=== PATIENT | male | born 1990 | race Two or more races ===

== ENCOUNTER 2017-05-03 09:53 | Observation (INO) | payer OTHER ==
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
[2017-05-03 10:22] LABS: BASO % 0.2 % (0-2.0); EOS % 3.5 % (0-4.5); HEMATOCRIT 45.6 % (35.4-49); HEMOGLOBIN 15.2 GM/dL (11.7-16.9); LYMPH % 13.8 % (8-40); MCH 30.2 pg (25.7-33.7); MCHC 33.3 g/dl (32.0-35.9); MEAN CELL VOLUME 90.9 fl (80-96); MEAN PLT VOLUME 8.8 fl (7.5-11.1); NEUT % 78.5 % (42.8-82.8); PLATELET COUNT 251 K/MM3 (134-434); RBC 5.02 M/mm3 (4.00-5.60); RDW 12.3 % (11.9-15.9); WHITE BLOOD COUNT 9.2 K/mm3 (4.0-10.0)
[2017-05-03] MEDS ORDERED: SODIUM CHLORIDE 0.9% 500 ML INFUS.BAG IV ONE (10:23)
[2017-05-03] MEDS ORDERED: FAMOTIDINE IV 20 MG/12 ML VIAL IVPUSH ONE (10:25)
[2017-05-03] MEDS ORDERED: ONDANSETRON 4 MG/2 ML VIAL IVPUSH ONE (10:25)
[2017-05-03] MEDS ORDERED: MAG HYDROX/AL HYDROX/SIMETH -MYLANTA- ORAL SUSPENSION PO ONE (10:26)
[2017-05-03] MEDS ORDERED: FAMOTIDINE 20 MG/50 ML IVPB 20 MG/50 ML MG IVPB ONE (10:32)
[2017-05-03] MEDS ORDERED: ONDANSETRON 4 MG/2 ML VIAL ONE (10:32)
[2017-05-03] MEDS ORDERED: MAG HYDROX/AL HYDROX/SIMETH 30 ML UNIT-DOSE CUP ONE (10:32)
[2017-05-03 10:45] LABS: ALBUMIN 4.2 g/dl (3.4-5.0); ALK PHOS 83 U/L (45-117); ANION GAP 7 (8-16); BILIRUBIN,TOTAL 0.4 mg/dL (0.2-1.0); BLOOD UREA NITROGEN 9 mg/dL (7-18); CALCIUM 9.6 mg/dL (8.5-10.1); CHLORIDE 102 mmol/L (98-107); CO2 28 mmol/L (21-32); GLUCOSE,RANDOM 108 mg/dL (74-106); SGPT/ALT 41 U/L (12-78); SODIUM 137 mmol/L (136-145)
[2017-05-03] MEDS ORDERED: LORazepam 2 MG/ML SDV VIAL ONE (10:56)
--- NOTE | 2017-05-03 11:14 | PDOC ---
Attending Attestation - Resident Resident Name: Funmi Franks - ED Attending Attestation I have performed the following: I have examined & evaluated the patient, The case was reviewed & discussed with the resident, I agree w/resident's findings & plan, Exceptions are as noted - HPI HPI: 05/03/17 11:06 "The patient is a 26-year-old male with a significant past medical history of asthma and substance abuse (opioid and cannabis), who is sent from [facility] today to the emergency department with abdominal pain, nausea, and vomiting for 1 day. Patient was set to be discharged from [facility] today but was found to be dry heaving this morning. Patient reports that his pain started last night but is worsening today. He reports epigastric pain and denies any radiation of pain. He admits to multiple episodes of non-bloody green-yellow vomit. No diarrhea. Denies any recent substance use. Has been at [facility] for 5 days. The patient denies chest pain, shortness of breath, headache and dizziness. The patient denies fever, chills, diarrhea and constipation. The patient denies dysuria, frequency, urgency and hematuria. Allergies: shellfish Social History: Substance abuse (opioid and cannabis) " - Physicial Exam PE: 05/03/17 11:14 "GENERAL: Awake, alert, and fully oriented, in no acute distress HEAD: No signs of trauma EYES: PERRLA, EOMI, sclera anicteric, conjunctiva clear ENT: Auricles normal inspection, hearing grossly normal, nares patent, oropharynx clear without exudates. Moist mucosa NECK: Nontender, no stepoffs, Normal ROM, supple, no lymphadenopathy, JVD, or masses LUNGS: Breath sounds equal, clear to auscultation bilaterally. No wheezes, and no crackles HEART: Regular rate and rhythm, normal S1 and S2, no murmurs, rubs or gallops ABDOMEN: + epigastric tenderness, negative allen's, no RLQ tenderness, normoactive bowel sounds. No guarding, no rebound. No masses EXTREMITIES: Normal range of motion, no edema. No clubbing or cyanosis. No cords, erythema, or tenderness NEUROLOGICAL: Cranial nerves II through XII intact. 5/5 strength and sensation in all extremities, Normal speech, normal gait, normal cerebellar function SKIN: Warm, Dry, normal turgor, no rashes or lesions noted. - Medical Decision Making 05/03/17 11:16 26 M with h/o PSA presenting with epigastric pain. Likely gastritis vs cyclic vomiting syndrome. Possible etoh or opiate withdrawal though less likely as pt reportedly has been clean for 5 days. - Labs, lipase - IVF, gi cocktail
[2017-05-03 11:20] LABS: LIPASE 229 U/L (73-393); POTASSIUM 4.5 mmol/L (3.5-5.1); SGOT/AST 32 U/L (15-37)
[2017-05-03 11:35] LABS: COCAINE, UR NEGATIVE ng/ml (CUTOFF=300); METHADONE, UR NEGATIVE ng/ml (CUTOFF=300); OPIATES, URI NEGATIVE ng/ml (CUTOFF=300); PHENCYCLIDINE,URINE NEGATIVE ng/ml (CUTOFF=25); URINE AMPHETAMINES NEGATIVE ng/ml (CUTOFF=500); URINE BARBITURATES NEGATIVE ng/ml (CUTOFF=200); URINE BENZODIAZEPINES POSITIVE ng/ml (CUTOFF=200)
[2017-05-03] MEDS ORDERED: SODIUM CHLORIDE 1,000 ML IV STA (12:16)
[2017-05-03] MEDS ORDERED: METOCLOPRAMIDE HCL INJECTION 10 MG/2 ML VIAL IVPUSH ONE (12:16)
[2017-05-03] MEDS ORDERED: METOCLOPRAMIDE HCL INJECTION 10 MG/2 ML VIAL ONE (12:23)
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
[2017-05-03] MEDS ORDERED: MAG HYDROX/AL HYDROX/SIMETH 30 ML UNIT-DOSE CUP PO PRN (14:47)
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
[2017-05-03] MEDS ORDERED: ALBUTEROL SO4 18 GM HFA INHALER IH PRN (15:08)
--- NOTE | 2017-05-03 15:28 | DS ---
Physical Exam: SUBJECTIVE: Patient seen and examined OBJECTIVE: Vital Signs Period Temp Pulse Resp BP Sys/Dickerson Pulse Ox Last 24 Hr 98.1 F-98.8 F 104-125 17-22 129-144/77-89 96-100 PHYSICAL EXAM GENERAL: The patient is awake, alert, and fully oriented, in no acute distress. HEAD: Normal with no signs of trauma. EYES: PERRL, extraocular movements intact, sclera anicteric, conjunctiva clear. ENT: Ears normal, nares patent, oropharynx clear without exudates, moist mucous membranes. NECK: Trachea midline, full range of motion, supple. LUNGS: Breath sounds equal, clear to auscultation bilaterally, no wheezes, no crackles, no accessory muscle use. HEART: Regular rate and rhythm, S1, S2 without murmur, rub or gallop. ABDOMEN: Soft, nontender, nondistended, normoactive bowel sounds, no guarding, no rebound, no hepatosplenomegaly, no masses. EXTREMITIES: 2+ pulses, warm, well-perfused, no edema. NEUROLOGICAL: Cranial nerves II through XII grossly intact. Normal speech, gait not observed. PSYCH: Normal mood, normal affect. SKIN: Warm, dry, normal turgor, no rashes or lesions noted. LABS Laboratory Results - last 24 hr 05/03/17 05/03/17 05/03/17 10:14 10:14 10:14 WBC 9.2 RBC 5.02 Hgb 15.2 Hct 45.6 MCV 90.9 MCH 30.2 MCHC 33.3 RDW 12.3 Plt Count 251 MPV 8.8 Neutrophils % 78.5 Lymphocytes % 13.8 Monocytes % 4.0 Eosinophils % 3.5 Basophils % 0.2 Sodium 137 Potassium 4.5 Chloride 102 Carbon Dioxide 28 Anion Gap 7 L BUN 9 D Creatinine 1.0 Creat Clearance w eGFR > 60 Random Glucose 108 H D Lactic Acid 1.2 Calcium 9.6 Total Bilirubin 0.4 AST 32 ALT 41 D Alkaline Phosphatase 83 Total Protein 8.0 Albumin 4.2 Lipase 229 Opiates Screen Methadone Screen Barbiturate Screen Phencyclidine Screen Ur Amphetamines Screen MDMA (Ecstasy) Screen Benzodiazepines Screen Cocaine Screen U Marijuana (THC) Screen 05/03/17 10:29 WBC RBC Hgb Hct MCV MCH MCHC RDW Plt Count MPV Neutrophils % Lymphocytes % Monocytes % Eosinophils % Basophils % Sodium Potassium Chloride Carbon Dioxide Anion Gap BUN Creatinine Creat Clearance w eGFR Random Glucose Lactic Acid Calcium Total Bilirubin AST ALT Alkaline Phosphatase Total Protein Albumin Lipase Opiates Screen Negative Methadone Screen Negative Barbiturate Screen Negative Phencyclidine Screen Negative Ur Amphetamines Screen Negative MDMA (Ecstasy) Screen Negative Benzodiazepines Screen Positive Cocaine Screen Negative U Marijuana (THC) Screen Positive HOSPITAL COURSE: Date of Admission:05/03/17 Date of Discharge: 05/03/17 Discharge Summary Reason For Visit: ABDOMINAL PAIN Current Active Problems Vomiting (Acute) Condition: Fair - Instructions Diet, Activity, Other Instructions: Please make an appointment with Dr. Denver Hernandez to establish primary care Referrals: David Goff MD [Staff Physician] - - Home Medications Comprehensive Discharge Medication List: Ambulatory Orders Albuterol Sulfate Inhaler - [Ventolin HFA Inhaler -] 2 puff IH Q4H PRN 04/28/17 Cetirizine HCl [Zyrtec -] 10 mg PO DAILY 04/28/17 Omeprazole 40 mg PO DAILY 04/28/17
[2017-05-03 15:30] VITALS: BMI 21.6
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
[2017-05-03] MEDS ORDERED: ONDANSETRON 4 MG/2 ML VIAL IVPUSH PRN (16:00)
[2017-05-03] MEDS ORDERED: SODIUM CHLORIDE 1,000 ML IV SCH (16:15)
[2017-05-03] MEDS: SODIUM CHLORIDE 1,000 ML IV SCH (17:06)
[2017-05-03] MEDS ORDERED: METHADONE HCL 5 MG TABLET PO ONE (17:37)
[2017-05-03] MEDS ORDERED: diazePAM 5 MG TABLET PO ONE (17:50)
[2017-05-03] MEDS ORDERED: PT OWN MED DRAWER 7, Y5N ONE ×2 (20:58→23:12)
[2017-05-03] MEDS: PANTOPRAZOLE SODIUM 40 MG VIAL IVPUSH SCH (21:03)
[2017-05-03] MEDS: cloNIDine HCL 0.1 MG TABLET PO SCH (21:27)
[2017-05-03] MEDS ORDERED: THIAMINE HCL 100 MG TABLET (FP) PO SCH (22:00)
[2017-05-03] MEDS: hydrOXYzine PAMOATE 50 MG CAPSULE (FP) PO PRN (23:29)
[2017-05-04] MEDS: SODIUM CHLORIDE 1,000 ML IV SCH (01:59)
[2017-05-04] MEDS ORDERED: PT OWN MED DRAWER 7, Y5N ONE ×2 (02:08→09:58)
[2017-05-04 08:28] LABS: BASO % 0.5 % (0-2.0); EOS % 5.4 % (0-4.5); HEMATOCRIT 42.5 % (35.4-49); HEMOGLOBIN 14.3 GM/dL (11.7-16.9); LYMPH % 34.3 % (8-40); MCH 30.6 pg (25.7-33.7); MCHC 33.7 g/dl (32.0-35.9); MEAN CELL VOLUME 90.8 fl (80-96); MEAN PLT VOLUME 8.6 fl (7.5-11.1); MONO % 8.8 % (3.8-10.2); PLATELET COUNT 240 K/MM3 (134-434); RBC 4.68 M/mm3 (4.00-5.60); RDW 12.3 % (11.9-15.9); WHITE BLOOD COUNT 6.7 K/mm3 (4.0-10.0)
[2017-05-04 08:48] LABS: ALBUMIN 3.6 g/dl (3.4-5.0); ALK PHOS 73 U/L (45-117); ANION GAP 9 (8-16); BILIRUBIN,TOTAL 0.4 mg/dL (0.2-1.0); BLOOD UREA NITROGEN 7 mg/dL (7-18); CALCIUM 9.3 mg/dL (8.5-10.1); CHLORIDE 104 mmol/L (98-107); CO2 28 mmol/L (21-32); CREATININE 1.1 mg/dL (0.7-1.3); GLUCOSE,RANDOM 90 mg/dL (74-106); POTASSIUM 4.2 mmol/L (3.5-5.1); SGOT/AST 19 U/L (15-37); SGPT/ALT 38 U/L (12-78); SODIUM 141 mmol/L (136-145); TOT PROT 7.1 g/dl (6.4-8.2)
[2017-05-04] MEDS ORDERED: PRENATAL VITAMINS W/ FOLIC ACID TABLET (FP) PO SCH (10:00)
[2017-05-04] MEDS: hydrOXYzine PAMOATE 50 MG CAPSULE (FP) PO PRN (10:18)
[2017-05-04] MEDS: PANTOPRAZOLE SODIUM 40 MG VIAL IVPUSH SCH (10:19)
[2017-05-04] MEDS: cloNIDine HCL 0.1 MG TABLET PO SCH (10:20)
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
--- NOTE | 2017-05-04 13:15 | DS ---
Physical Exam: SUBJECTIVE: Patient seen and examined, doing well, tolerating diet well, no further vomiting noted. OBJECTIVE: Vital Signs Period Temp Pulse Resp BP Sys/Dickerson Pulse Ox Last 24 Hr 97.7 F-98.8 F 69-125 18-22 94-144/60-86 96-98 PHYSICAL EXAM General: sitting in bed in no acute distress CVS;S1s2 regular Chest: CTAB, no rales or wheezing abdomen:soft, NT, ND, positive bowel sounds extremities: no edema Neuro:AAOx3, no tremors LABS Laboratory Results - last 24 hr 05/04/17 05/04/17 07:45 07:45 WBC 6.7 RBC 4.68 Hgb 14.3 Hct 42.5 MCV 90.8 MCH 30.6 MCHC 33.7 RDW 12.3 Plt Count 240 MPV 8.6 Neutrophils % 51.0 D Lymphocytes % 34.3 D Monocytes % 8.8 D Eosinophils % 5.4 H Basophils % 0.5 Sodium 141 Potassium 4.2 Chloride 104 Carbon Dioxide 28 Anion Gap 9 BUN 7 D Creatinine 1.1 Creat Clearance w eGFR > 60 Random Glucose 90 Calcium 9.3 Total Bilirubin 0.4 AST 19 D ALT 38 Alkaline Phosphatase 73 Total Protein 7.1 Albumin 3.6 HOSPITAL COURSE: Date of Admission:05/03/17 Date of Discharge: 05/04/17 Minutes to complete discharge: 35 Discharge Summary Reason For Visit: ABDOMINAL PAIN Current Active Problems Vomiting (Acute) Hospital Course: Patient was placed on supportive treatment with IV protonix BID, IVF, zofran and maalox. His symptoms resolved and he was able to tolerate diet well. Plan for him is to eventually go to [facility], however, no bed was available and patient preferred to be discharge to outpatient follow up with his counselor for further follow up. He is advised drug cessation including marihuana and discuss with his doctor for outpatient gastroenterology follow up.He is currently doing well, without pain and tolerating his diet. Condition: Good - Instructions Diet, Activity, Other Instructions: Please make an appointment with Dr. Denver Hernandez to establish primary care or follow up with your regular doctor. Take protonix 40 mg daily for 1 week and then once daily as needed for stomach upset. Follow up with your doctor to discuss outpatient Gastroenterology follow up. Avoid alcohol, spicy foods. Take small meals at frequent intervals and avoid eating 2 hours before bed. Avoid NSAIds including ibuprofen/motrin till seen by your doctor. Strongly recommend drug cessation including marihuana as could be contributing to your symptoms. Please follow up with your counselor to arrange follow up with [facility] , information has been provided. Referrals: David Goff MD [Staff Physician] - Disposition: HOME - Home Medications Comprehensive Discharge Medication List: Ambulatory Orders Albuterol Sulfate Inhaler - [Ventolin HFA Inhaler -] 2 puff IH Q4H PRN 04/28/17 Cetirizine HCl [Zyrtec -] 10 mg PO DAILY 04/28/17 Mag Hydrox/Al Hydrox/Simeth [Mylanta Oral Suspension -] 30 ml PO Q6H PRN 3 Days #1 cup 05/04/17 Pantoprazole Sodium [Protonix -] 40 mg PO DAILY #14 tablet.ec 05/04/17 This patient is new to me today: No Emergency Visit: No Critical Care patient: No - Discharge Referral Referred to [facility] No
[2017-05-04 13:55] VITALS: BP 111/66; PULSE 73; TEMP 98.4
--- NOTE | 2017-05-05 00:14 | EKG ---
Test Reason : Blood Pressure : / mmHG Vent. Rate : 098 BPM Atrial Rate : 098 BPM P-R Int : 136 ms QRS Dur : 074 ms QT Int : 346 ms P-R-T Axes : 062 035 048 degrees QTc Int : 441 ms SINUS RHYTHM WITH MARKED SINUS ARRHYTHMIA OTHERWISE NORMAL ECG WHEN COMPARED WITH ECG OF 28-APR-2017 16:43, NO SIGNIFICANT CHANGE WAS FOUND Confirmed by THERESA VICENTE MD ([id number]) on 05/05/2017 12:14:26 AM Referred By: Confirmed By:THERESA VICENTE MD
== END 2017-05-04 15:43 | disposition home or self-care (01) ==
LOC: JER 09:53 → JERBED 12:28 → UNDODISOB 13:19 → J6S 14:36
PROVIDERS: ADMIT Hospitalist; ATTEND Hospitalist
PROC: 3E033GC Introduction of Other Therapeutic Substance into Peripheral Vein, Percutaneous Approach (ICD-10-PCS; principal; 2017-05-03)
PROC: 3E033NZ Introduction of Analgesics, Hypnotics, Sedatives into Peripheral Vein, Percutaneous Approach (ICD-10-PCS; 2017-05-03)
PROC: 3E0337Z Introduction of Electrolytic and Water Balance Substance into Peripheral Vein, Percutaneous Approach (ICD-10-PCS; 2017-05-03)
DX: R10.13 Epigastric pain (principal); R11.2 Nausea with vomiting, unspecified; F13.20 Sedative, hypnotic or anxiolytic dependence, uncomplicated; F11.90 Opioid use, unspecified, uncomplicated; F17.210 Nicotine dependence, cigarettes, uncomplicated; J45.909 Unspecified asthma, uncomplicated; M54.5 Low back pain; G89.29 Other chronic pain; K29.00 Acute gastritis without bleeding
CPT/HCPCS: 36415; 71045-TC-FY; 76700-TC; 80053; 80307; 83605; 83690; 85025; 93005; 93010; 96361; 96374; 96375; 99283-25; G0378; J7030

== ENCOUNTER 2017-05-05 09:16 | Inpatient (IN) | payer OTHER ==
[2017-05-05 09:30] VITALS: BMI 22.1
[2017-05-05] MEDS ORDERED: guaiFENesin/D-METHORPHAN HB 10 ML UNIT-DOSE CUPS PO PRN (11:12)
[2017-05-05] MEDS ORDERED: MAGNESIUM HYDROX 2400MG/30ML ORAL SUSPENSION 30 ML CUP PO PRN (11:12)
[2017-05-05] MEDS ORDERED: MENTHOL/PHENOL 1 EACH UD MM PRN (11:12)
[2017-05-05] MEDS ORDERED: MAGNESIUM CITRATE 300 ML BOTTLE PO PRN (11:12)
[2017-05-05] MEDS ORDERED: LOPERAMIDE HCL 2 MG CAPSULE PO PRN (11:12)
[2017-05-05] MEDS ORDERED: IBUPROFEN 400 MG TABLET (FP) PO PRN (11:12)
[2017-05-05] MEDS ORDERED: P-EPHED 60MG/TRIPROLIDI 2.5MG TABLET PO PRN (11:12)
[2017-05-05] MEDS ORDERED: ACETAMINOPHEN 325 MG TABLET (FP) PO PRN (11:12)
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
[2017-05-05] MEDS: cloNIDine HCL 0.1 MG TABLET PO SCH ×2 (12:40→21:12)
[2017-05-05] MEDS: BUPRENORPHINE/NALOXONE 2 MG/0.5 MG FILM PACKET SL SCH (12:41)
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
[2017-05-05] MEDS ORDERED: SUVOREXANT 10 MG TABLET PO PRN (13:43)
[2017-05-05] MEDS: CYCLOBENZAPRINE HCL 10 MG TABLET (FP) PO SCH ×2 (14:16→21:12)
[2017-05-05] MEDS: THIAMINE HCL 100 MG TABLET (FP) PO SCH (21:12)
[2017-05-05] MEDS: hydrOXYzine PAMOATE 50 MG CAPSULE (FP) PO PRN (21:12)
[2017-05-06] MEDS: CYCLOBENZAPRINE HCL 10 MG TABLET (FP) PO SCH ×3 (06:06→21:16)
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
[2017-05-06] MEDS: BUPRENORPHINE/NALOXONE 2 MG/0.5 MG FILM PACKET SL SCH (09:48)
[2017-05-06] MEDS: cloNIDine HCL 0.1 MG TABLET PO SCH ×2 (09:48→21:17)
[2017-05-06] MEDS ORDERED: PRENATAL VITAMINS W/ FOLIC ACID TABLET (FP) PO SCH (10:00)
[2017-05-06] MEDS: PRENATAL VITAMINS W/ FOLIC ACID TABLET (FP) PO SCH (10:44)
[2017-05-06] MEDS: MAG HYDROX/AL HYDROX/SIMETH 30 ML UNIT-DOSE CUP PO PRN ×2 (12:12→18:03)
--- NOTE | 2017-05-06 14:38 | PN ---
[facility] Progress Note Note: Patient reports continues back pain, anxious, shakiness and dyspesia Vital Signs Temperature 97 F L 05/06/17 06:44 Pulse Rate 71 05/06/17 22:00 Respiratory Rate 18 05/06/17 06:44 Blood Pressure 99/56 05/06/17 22:00 O2 Sat by Pulse Oximetry (%) ROS: General: anxious, and difficulty sleeping HR: denies no chest pain, palpitations Lungs: no SOB / wheezing Neuro: denies dizziness, or paresthesia, + shaky Musc: reports low back pain Abd: dyspesia Assessment GENERAL APPEARANCE: Well developed, well nourished, alert and cooperative, and appears to be in no acute distress. CARDIAC: Normal S1 and S2. No S3, S4 or murmurs. Rhythm is regular. No edema LUNGS: Clear to auscultation and percussion without rales, rhonchi, wheezing or diminished breath sounds. MUSKULOSKELETAL: ROM intact spine and extremities. No joint erythema or tenderness. Normal muscular development. Normal gait. + low back pain NEUROLOGICAL: CN II-XII intact. ABD: BS x 4, non-tender SKIN: Skin no lesions or eruptions. + dry flaky skin, both heels and inner thigh Plan Continue to monitor, patient will be assessed as need for Suboxone dosage adjustment Gabapentin 100 mg TID continue Protonix Increase fluids Continue to monitor
[2017-05-06] MEDS ORDERED: PANTOPRAZOLE 40 MG TABLET (FP) PO SCH (15:35)
[2017-05-06] MEDS: GABAPENTIN 100 MG CAPSULE (FP) PO SCH ×2 (16:01→21:16)
[2017-05-06] MEDS: hydrOXYzine PAMOATE 50 MG CAPSULE (FP) PO PRN (21:16)
[2017-05-06] MEDS: THIAMINE HCL 100 MG TABLET (FP) PO SCH (21:17)
[2017-05-07] MEDS: PANTOPRAZOLE 40 MG TABLET (FP) PO SCH (06:09)
[2017-05-07] MEDS: GABAPENTIN 100 MG CAPSULE (FP) PO SCH ×3 (06:09→21:14)
[2017-05-07] MEDS: CYCLOBENZAPRINE HCL 10 MG TABLET (FP) PO SCH ×3 (06:09→21:14)
[2017-05-07] MEDS: ALBUTEROL SO4 18 GM HFA INHALER IH PRN (06:10)
[2017-05-07] MEDS: MAG HYDROX/AL HYDROX/SIMETH 30 ML UNIT-DOSE CUP PO PRN ×2 (08:24→14:35)
[2017-05-07] MEDS: PRENATAL VITAMINS W/ FOLIC ACID TABLET (FP) PO SCH (09:44)
[2017-05-07] MEDS: BUPRENORPHINE/NALOXONE 2 MG/0.5 MG FILM PACKET SL SCH (09:44)
[2017-05-07] MEDS: cloNIDine HCL 0.1 MG TABLET PO SCH (09:44)
--- NOTE | 2017-05-07 12:22 | PN ---
[facility] Progress Note Note: c/o protracted opioidwithdrawal sx with sympotmatic relief, woudl like to increase dose of suboxoena dncontinue MAT, counselor arranging for program Vital Signs - 24 hr 05/06/17 05/07/17 05/07/17 22:00 03:30 06:32 Temperature 97.3 F L Pulse Rate 71 80 Respiratory 18 18 Rate Blood Pressure 99/56 101/54 05/07/17 08:45 Temperature Pulse Rate 98 H Respiratory Rate Blood Pressure 108/68 labs reviewed a/p: OUD, severe w protracted withdrawal increase suboxone dose for comfort adn to eliminate cravings to 8mg daily, additional 4mg today + 6mg total dose today can change clonidine to prn dosing lynn hess with iensure as per patient request, h/o wt loss, malnutirtion 2/2 substance use.
[2017-05-07] MEDS ORDERED: BUPRENORPHINE/NALOXONE 2 MG/0.5 MG FILM PACKET SL ONE (13:45)
[2017-05-07] MEDS: NICOTINE POLACRILEX 2 MG GUM BUC PRN (20:00)
--- NOTE | 2017-05-07 20:11 | PN ---
[facility] Progress Note Note: Patient is a smoker and complained of cravings. Nicotine gum 2 mg BUC Q2H ordered.
[2017-05-07] MEDS: hydrOXYzine PAMOATE 50 MG CAPSULE (FP) PO PRN (21:14)
[2017-05-07] MEDS: THIAMINE HCL 100 MG TABLET (FP) PO SCH (21:14)
[2017-05-07] MEDS: SUVOREXANT 5 MG TABLET PO PRN (21:15)
[2017-05-08] MEDS ORDERED: PT OWN MED DRAWER 7, Y5N ONE ×2 (03:36→20:17)
[2017-05-08] MEDS: PANTOPRAZOLE 40 MG TABLET (FP) PO SCH (06:23)
[2017-05-08] MEDS: CYCLOBENZAPRINE HCL 10 MG TABLET (FP) PO SCH ×3 (06:23→21:21)
[2017-05-08] MEDS: GABAPENTIN 100 MG CAPSULE (FP) PO SCH ×3 (06:23→21:21)
[2017-05-08] MEDS: MAG HYDROX/AL HYDROX/SIMETH 30 ML UNIT-DOSE CUP PO PRN ×3 (07:14→21:25)
[2017-05-08] MEDS: hydrOXYzine PAMOATE 50 MG CAPSULE (FP) PO PRN ×3 (09:38→21:22)
[2017-05-08] MEDS: PRENATAL VITAMINS W/ FOLIC ACID TABLET (FP) PO SCH (09:38)
[2017-05-08] MEDS: BUPRENORPHINE/NALOXONE 8 MG/2 MG FILM PACKET SL SCH (09:38)
[2017-05-08] MEDS: cloNIDine HCL 0.1 MG TABLET PO PRN ×2 (10:55→21:23)
[2017-05-08] MEDS: NICOTINE POLACRILEX 2 MG GUM BUC PRN ×4 (11:49→21:25)
--- NOTE | 2017-05-08 13:19 | PN ---
[facility] Progress Note Note: Patient presents with c/o heartburn with mild relief from Mylanta and Protonix. Vital Signs Temperature 97.8 F 05/08/17 06:44 Pulse Rate 96 H 05/08/17 06:44 Respiratory Rate 18 05/08/17 06:44 Blood Pressure 97/64 05/08/17 06:44 O2 Sat by Pulse Oximetry (%) Obj: Skin: warm, dry and intact Neck: supple, no thyromegaly GI: soft, BS, NT. A/P: GERD Discussed diet modifications, continue Protonix and Mylanta as ordered. Add Sulcrafate 1 gram BID. Continue to monitor clinically.
[2017-05-08] MEDS: SUCRALFATE 1 GM TABLET (FP) PO SCH (21:21)
[2017-05-08] MEDS: SUVOREXANT 5 MG TABLET PO PRN (21:23)
[2017-05-08] MEDS: THIAMINE HCL 100 MG TABLET (FP) PO SCH (21:24)
[2017-05-09] MEDS ORDERED: PT OWN MED DRAWER 7, Y5N ONE (03:46)
[2017-05-09] MEDS: GABAPENTIN 100 MG CAPSULE (FP) PO SCH ×3 (06:10→21:19)
[2017-05-09] MEDS: PANTOPRAZOLE 40 MG TABLET (FP) PO SCH (06:10)
[2017-05-09] MEDS: hydrOXYzine PAMOATE 50 MG CAPSULE (FP) PO PRN ×4 (06:10→21:19)
[2017-05-09] MEDS: CYCLOBENZAPRINE HCL 10 MG TABLET (FP) PO SCH ×3 (06:10→21:19)
[2017-05-09] MEDS: cloNIDine HCL 0.1 MG TABLET PO PRN (06:13)
[2017-05-09] MEDS: NICOTINE POLACRILEX 2 MG GUM BUC PRN ×4 (06:13→20:08)
[2017-05-09] MEDS: PRENATAL VITAMINS W/ FOLIC ACID TABLET (FP) PO SCH (09:01)
[2017-05-09] MEDS: BUPRENORPHINE/NALOXONE 8 MG/2 MG FILM PACKET SL SCH (09:01)
[2017-05-09] MEDS: MAG HYDROX/AL HYDROX/SIMETH 30 ML UNIT-DOSE CUP PO PRN ×2 (09:01→17:09)
[2017-05-09] MEDS: SUCRALFATE 1 GM TABLET (FP) PO SCH ×2 (11:44→21:19)
[2017-05-09] MEDS: SUVOREXANT 5 MG TABLET PO PRN (21:19)
[2017-05-09] MEDS: THIAMINE HCL 100 MG TABLET (FP) PO SCH (21:19)
[2017-05-10] MEDS: MAG HYDROX/AL HYDROX/SIMETH 30 ML UNIT-DOSE CUP PO PRN ×3 (02:19→16:44)
[2017-05-10] MEDS: GABAPENTIN 100 MG CAPSULE (FP) PO SCH ×3 (06:09→21:10)
[2017-05-10] MEDS: NICOTINE POLACRILEX 2 MG GUM BUC PRN ×5 (06:09→21:41)
[2017-05-10] MEDS: hydrOXYzine PAMOATE 50 MG CAPSULE (FP) PO PRN ×4 (06:09→19:23)
[2017-05-10] MEDS: PANTOPRAZOLE 40 MG TABLET (FP) PO SCH (06:09)
[2017-05-10] MEDS: CYCLOBENZAPRINE HCL 10 MG TABLET (FP) PO SCH ×3 (06:09→21:10)
[2017-05-10] MEDS ORDERED: PT OWN MED DRAWER 7, Y5N ONE ×4 (08:28→21:40)
[2017-05-10] MEDS: BUPRENORPHINE/NALOXONE 8 MG/2 MG FILM PACKET SL SCH (09:34)
[2017-05-10] MEDS: PRENATAL VITAMINS W/ FOLIC ACID TABLET (FP) PO SCH (09:34)
[2017-05-10] MEDS: SUCRALFATE 1 GM TABLET (FP) PO SCH ×2 (09:34→21:10)
[2017-05-10] MEDS: cloNIDine HCL 0.1 MG TABLET PO PRN ×2 (09:38→21:13)
[2017-05-10] MEDS ORDERED: LIDOCAINE VISCOUS 2% ORAL/TOP 20 ML UNIT-DOSE CUP MM PRN (14:39)
--- NOTE | 2017-05-10 14:39 | PN ---
[facility] Progress Note Note: Patient C/O discomfort near tip of tongue X approx. 2 days. Visualization of tongue reveals that [id number] appears somewhat reddened; however, no swelling, wounds, bleeding, or unusual discharge is noted. Patient denies any recent known history of wound to tongue. Patient any recent consumption of shellfish ( he has allergy to). Patient denies any other discomfort in mouth or tongue and he denies any difficulty chewing or swallowing. Patient denies SOB. Viscous Lidocaine Mouthwash ordered PRN. Patient Gargling with warm salt water as needed recommended. PRN throat lozenges. Patient advised to avoid really hot, spicy, and salty foods for the time being. India Montes NP
[2017-05-10] MEDS: ALBUTEROL SO4 18 GM HFA INHALER IH PRN ×2 (15:46→21:40)
[2017-05-10] MEDS: THIAMINE HCL 100 MG TABLET (FP) PO SCH (21:10)
[2017-05-10] MEDS: SUVOREXANT 5 MG TABLET PO PRN (21:13)
[2017-05-11] MEDS: CYCLOBENZAPRINE HCL 10 MG TABLET (FP) PO SCH ×3 (06:02→21:05)
[2017-05-11] MEDS: hydrOXYzine PAMOATE 50 MG CAPSULE (FP) PO PRN ×5 (06:02→23:05)
[2017-05-11] MEDS: PANTOPRAZOLE 40 MG TABLET (FP) PO SCH (06:02)
[2017-05-11] MEDS: GABAPENTIN 100 MG CAPSULE (FP) PO SCH ×3 (06:02→21:05)
[2017-05-11] MEDS: NICOTINE POLACRILEX 2 MG GUM BUC PRN ×6 (06:03→23:07)
[2017-05-11] MEDS ORDERED: PT OWN MED DRAWER 7, Y5N ONE ×2 (08:24→19:13)
[2017-05-11] MEDS: BUPRENORPHINE/NALOXONE 8 MG/2 MG FILM PACKET SL SCH (09:23)
[2017-05-11] MEDS: PRENATAL VITAMINS W/ FOLIC ACID TABLET (FP) PO SCH (09:23)
[2017-05-11] MEDS: SUCRALFATE 1 GM TABLET (FP) PO SCH ×2 (09:23→21:05)
[2017-05-11] MEDS: cloNIDine HCL 0.1 MG TABLET PO PRN ×2 (10:30→21:05)
[2017-05-11] MEDS: MAG HYDROX/AL HYDROX/SIMETH 30 ML UNIT-DOSE CUP PO PRN ×3 (10:30→23:04)
[2017-05-11] MEDS ORDERED: SUVOREXANT 10 MG TABLET PO PRN (14:34)
[2017-05-11] MEDS: THIAMINE HCL 100 MG TABLET (FP) PO SCH (21:05)
[2017-05-11] MEDS: ALBUTEROL SO4 18 GM HFA INHALER IH PRN (21:06)
[2017-05-12] MEDS: ALBUTEROL SO4 18 GM HFA INHALER IH PRN (05:56)
[2017-05-12] MEDS: PANTOPRAZOLE 40 MG TABLET (FP) PO SCH (05:56)
[2017-05-12] MEDS: GABAPENTIN 100 MG CAPSULE (FP) PO SCH ×3 (05:56→21:21)
[2017-05-12] MEDS: CYCLOBENZAPRINE HCL 10 MG TABLET (FP) PO SCH ×3 (05:56→21:21)
[2017-05-12] MEDS: NICOTINE POLACRILEX 2 MG GUM BUC PRN ×5 (05:58→21:28)
[2017-05-12] MEDS: hydrOXYzine PAMOATE 50 MG CAPSULE (FP) PO PRN ×4 (05:58→21:21)
[2017-05-12] MEDS: PRENATAL VITAMINS W/ FOLIC ACID TABLET (FP) PO SCH (09:38)
[2017-05-12] MEDS: cloNIDine HCL 0.1 MG TABLET PO PRN ×2 (09:38→21:21)
[2017-05-12] MEDS: BUPRENORPHINE/NALOXONE 8 MG/2 MG FILM PACKET SL SCH (09:38)
[2017-05-12] MEDS: SUCRALFATE 1 GM TABLET (FP) PO SCH ×2 (09:39→21:27)
[2017-05-12] MEDS ORDERED: PT OWN MED DRAWER 7, Y5N ONE (09:40)
[2017-05-12] MEDS: MAG HYDROX/AL HYDROX/SIMETH 30 ML UNIT-DOSE CUP PO PRN ×2 (10:34→17:53)
[2017-05-12] MEDS: THIAMINE HCL 100 MG TABLET (FP) PO SCH (21:21)
[2017-05-12] MEDS: SUVOREXANT 5 MG TABLET PO PRN (21:27)
[2017-05-13] MEDS: ALBUTEROL SO4 18 GM HFA INHALER IH PRN ×2 (03:47→21:07)
[2017-05-13] MEDS: PANTOPRAZOLE 40 MG TABLET (FP) PO SCH (06:24)
[2017-05-13] MEDS: CYCLOBENZAPRINE HCL 10 MG TABLET (FP) PO SCH ×3 (06:24→21:08)
[2017-05-13] MEDS: GABAPENTIN 100 MG CAPSULE (FP) PO SCH ×3 (06:24→21:08)
[2017-05-13] MEDS: hydrOXYzine PAMOATE 50 MG CAPSULE (FP) PO PRN ×4 (06:25→21:08)
[2017-05-13] MEDS: NICOTINE POLACRILEX 2 MG GUM BUC PRN ×4 (06:25→21:09)
[2017-05-13] MEDS: SUCRALFATE 1 GM TABLET (FP) PO SCH ×2 (09:30→23:14)
[2017-05-13] MEDS: PRENATAL VITAMINS W/ FOLIC ACID TABLET (FP) PO SCH (09:30)
[2017-05-13] MEDS: BUPRENORPHINE/NALOXONE 8 MG/2 MG FILM PACKET SL SCH (09:30)
[2017-05-13] MEDS: cloNIDine HCL 0.1 MG TABLET PO PRN ×2 (09:31→21:08)
[2017-05-13] MEDS: MAG HYDROX/AL HYDROX/SIMETH 30 ML UNIT-DOSE CUP PO PRN ×2 (10:34→16:36)
--- NOTE | 2017-05-13 16:16 | PN ---
[facility] Progress Note Note: c/o protracted opioid withdrawal sx with no symptomatic relief, would like to increase dose of suboxone, reports currently on the 8 mg of Suboxone has increase sweats, "shakes on both hands" cravings and back pain, counselor arranging for program for after care. Vital Signs Temperature 97.8 F 05/13/17 06:45 Pulse Rate 97 H 05/13/17 09:20 Respiratory Rate 20 05/13/17 06:45 Blood Pressure 122/86 05/13/17 09:20 O2 Sat by Pulse Oximetry (%) labs reviewed no apparent distress, + anxious No tremors present, no parestesia present + back pain, uses back brace ambulating in the unit Plan: severe w protracted withdrawal increase suboxone dose for comfort and to eliminate cravings to 12 mg daily, additional 4mg today + 8mg total dose today Continue clonidine PRN Increase fluids Continue to monitor
[2017-05-13] MEDS ORDERED: BUPRENORPHINE/NALOXONE 2 MG/0.5 MG FILM PACKET SL ONE (17:00)
[2017-05-13] MEDS: THIAMINE HCL 100 MG TABLET (FP) PO SCH (21:08)
[2017-05-14] MEDS: ALBUTEROL SO4 18 GM HFA INHALER IH PRN (06:08)
[2017-05-14] MEDS: CYCLOBENZAPRINE HCL 10 MG TABLET (FP) PO SCH ×3 (06:09→21:20)
[2017-05-14] MEDS: hydrOXYzine PAMOATE 50 MG CAPSULE (FP) PO PRN ×4 (06:09→21:20)
[2017-05-14] MEDS: PANTOPRAZOLE 40 MG TABLET (FP) PO SCH (06:09)
[2017-05-14] MEDS: GABAPENTIN 100 MG CAPSULE (FP) PO SCH ×3 (06:09→21:20)
[2017-05-14] MEDS: SUCRALFATE 1 GM TABLET (FP) PO SCH ×2 (09:38→21:20)
[2017-05-14] MEDS: BUPRENORPHINE HCL/NALOXONE 12 MG-3 MG SL FILM PACKET SL SCH (09:38)
[2017-05-14] MEDS: PRENATAL VITAMINS W/ FOLIC ACID TABLET (FP) PO SCH (09:38)
[2017-05-14] MEDS: MAG HYDROX/AL HYDROX/SIMETH 30 ML UNIT-DOSE CUP PO PRN ×2 (10:55→17:02)
[2017-05-14] MEDS: NICOTINE POLACRILEX 2 MG GUM BUC PRN (10:55)
[2017-05-14] MEDS: cloNIDine HCL 0.1 MG TABLET PO PRN ×2 (10:56→21:19)
[2017-05-14] MEDS: THIAMINE HCL 100 MG TABLET (FP) PO SCH (21:19)
[2017-05-14] MEDS: SUVOREXANT 5 MG TABLET PO PRN (21:20)
[2017-05-15] MEDS: CYCLOBENZAPRINE HCL 10 MG TABLET (FP) PO SCH ×3 (06:00→21:30)
[2017-05-15] MEDS: GABAPENTIN 100 MG CAPSULE (FP) PO SCH ×3 (06:00→21:30)
[2017-05-15] MEDS: PANTOPRAZOLE 40 MG TABLET (FP) PO SCH (06:00)
[2017-05-15] MEDS: hydrOXYzine PAMOATE 50 MG CAPSULE (FP) PO PRN ×4 (06:00→21:32)
[2017-05-15] MEDS ORDERED: SUVOREXANT 5 MG TABLET PO PRN (06:09)
[2017-05-15] MEDS: SUCRALFATE 1 GM TABLET (FP) PO SCH ×2 (09:44→21:30)
[2017-05-15] MEDS: PRENATAL VITAMINS W/ FOLIC ACID TABLET (FP) PO SCH (09:45)
[2017-05-15] MEDS: BUPRENORPHINE HCL/NALOXONE 12 MG-3 MG SL FILM PACKET SL SCH (09:46)
[2017-05-15] MEDS: cloNIDine HCL 0.1 MG TABLET PO PRN ×2 (09:47→21:32)
[2017-05-15] MEDS: MAG HYDROX/AL HYDROX/SIMETH 30 ML UNIT-DOSE CUP PO PRN ×3 (10:47→22:48)
[2017-05-15] MEDS: NICOTINE POLACRILEX 2 MG GUM BUC PRN ×2 (15:33→22:47)
--- NOTE | 2017-05-15 16:31 | PN ---
[facility] Progress Note Note: Vital Signs Temperature 97.4 F L 05/15/17 06:45 Pulse Rate 112 H 05/15/17 09:25 Respiratory Rate 18 05/15/17 06:45 Blood Pressure 135/81 05/15/17 09:25 O2 Sat by Pulse Oximetry (%) patient c/o c/o protracted opioid withdrawal sx with no symptomatic relief, would like to increase dose of suboxone, reports currently on the 12 mg of Suboxone has increase sweats, "shakes on both hands" cravings and worsening back pain, counselor arranging for program for after care. Assessment: no apparent distress, + anxious No tremors present, no parestesia present + back pain, uses back brace ambulating in the unit Plan: increase Suboxone from 12mg to 16mg divided into doses Lidocaine patch Increase fluids Continue to monitor
[2017-05-15] MEDS: LIDOCAINE 5% TOPICAL PATCH TP SCH (16:59)
[2017-05-15] MEDS: THIAMINE HCL 100 MG TABLET (FP) PO SCH (21:30)
[2017-05-15] MEDS: LIDOCAINE PATCH REMOVAL MC SCH (21:30)
[2017-05-16] MEDS ORDERED: PT OWN MED DRAWER 7, Y5N ONE ×2 (04:33→13:51)
[2017-05-16] MEDS: ALBUTEROL SO4 18 GM HFA INHALER IH PRN ×2 (04:34→13:51)
[2017-05-16] MEDS: GABAPENTIN 100 MG CAPSULE (FP) PO SCH ×3 (06:01→22:14)
[2017-05-16] MEDS: PANTOPRAZOLE 40 MG TABLET (FP) PO SCH (06:01)
[2017-05-16] MEDS: CYCLOBENZAPRINE HCL 10 MG TABLET (FP) PO SCH ×3 (06:01→22:14)
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
[2017-05-16] MEDS: SUCRALFATE 1 GM TABLET (FP) PO SCH ×2 (09:47→22:14)
[2017-05-16] MEDS: PRENATAL VITAMINS W/ FOLIC ACID TABLET (FP) PO SCH (09:47)
[2017-05-16] MEDS: BUPRENORPHINE/NALOXONE 8 MG/2 MG FILM PACKET SL SCH (09:47)
[2017-05-16] MEDS: cloNIDine HCL 0.1 MG TABLET PO PRN ×2 (09:49→22:14)
[2017-05-16] MEDS: LIDOCAINE 5% TOPICAL PATCH TP SCH (10:47)
[2017-05-16] MEDS: MAG HYDROX/AL HYDROX/SIMETH 30 ML UNIT-DOSE CUP PO PRN ×2 (10:47→17:05)
[2017-05-16] MEDS: hydrOXYzine PAMOATE 50 MG CAPSULE (FP) PO PRN ×3 (10:47→22:14)
[2017-05-16] MEDS: NICOTINE POLACRILEX 2 MG GUM BUC PRN (17:06)
[2017-05-16] MEDS: traZODone HCL 100 MG TABLET (FP) PO SCH (22:14)
[2017-05-16] MEDS: THIAMINE HCL 100 MG TABLET (FP) PO SCH (22:14)
[2017-05-16] MEDS: SUVOREXANT 10 MG TABLET PO PRN (22:14)
[2017-05-16] MEDS: LIDOCAINE PATCH REMOVAL MC SCH (22:15)
[2017-05-17] MEDS: MAG HYDROX/AL HYDROX/SIMETH 30 ML UNIT-DOSE CUP PO PRN ×3 (00:08→17:01)
[2017-05-17] MEDS: ALBUTEROL SO4 18 GM HFA INHALER IH PRN ×3 (00:09→09:40)
[2017-05-17] MEDS: CYCLOBENZAPRINE HCL 10 MG TABLET (FP) PO SCH ×3 (06:37→21:18)
[2017-05-17] MEDS: GABAPENTIN 100 MG CAPSULE (FP) PO SCH ×3 (06:37→21:18)
[2017-05-17] MEDS: PANTOPRAZOLE 40 MG TABLET (FP) PO SCH (06:37)
[2017-05-17] MEDS: hydrOXYzine PAMOATE 50 MG CAPSULE (FP) PO PRN ×4 (06:37→21:18)
[2017-05-17] MEDS: SUCRALFATE 1 GM TABLET (FP) PO SCH ×2 (09:39→21:18)
[2017-05-17] MEDS: cloNIDine HCL 0.1 MG TABLET PO PRN ×2 (09:39→21:18)
[2017-05-17] MEDS: PRENATAL VITAMINS W/ FOLIC ACID TABLET (FP) PO SCH (09:39)
[2017-05-17] MEDS: LIDOCAINE 5% TOPICAL PATCH TP SCH (09:39)
[2017-05-17] MEDS: BUPRENORPHINE/NALOXONE 8 MG/2 MG FILM PACKET SL SCH (09:39)
[2017-05-17] MEDS: NICOTINE POLACRILEX 2 MG GUM BUC PRN ×2 (10:47→17:00)
[2017-05-17] MEDS: SUVOREXANT 10 MG TABLET PO PRN (21:18)
[2017-05-17] MEDS: THIAMINE HCL 100 MG TABLET (FP) PO SCH (21:18)
[2017-05-17] MEDS: traZODone HCL 100 MG TABLET (FP) PO SCH (21:18)
[2017-05-17] MEDS: LIDOCAINE PATCH REMOVAL MC SCH (21:19)
[2017-05-18] MEDS: MAG HYDROX/AL HYDROX/SIMETH 30 ML UNIT-DOSE CUP PO PRN ×3 (00:19→23:12)
[2017-05-18] MEDS: ALBUTEROL SO4 18 GM HFA INHALER IH PRN ×2 (00:20→14:47)
[2017-05-18] MEDS: GABAPENTIN 100 MG CAPSULE (FP) PO SCH ×3 (06:25→21:17)
[2017-05-18] MEDS: PANTOPRAZOLE 40 MG TABLET (FP) PO SCH (06:25)
[2017-05-18] MEDS: CYCLOBENZAPRINE HCL 10 MG TABLET (FP) PO SCH ×3 (06:25→21:17)
[2017-05-18] MEDS: PRENATAL VITAMINS W/ FOLIC ACID TABLET (FP) PO SCH (09:48)
[2017-05-18] MEDS: SUCRALFATE 1 GM TABLET (FP) PO SCH ×2 (09:48→21:17)
[2017-05-18] MEDS: BUPRENORPHINE/NALOXONE 8 MG/2 MG FILM PACKET SL SCH (09:48)
[2017-05-18] MEDS: LIDOCAINE 5% TOPICAL PATCH TP SCH (09:48)
[2017-05-18] MEDS: hydrOXYzine PAMOATE 50 MG CAPSULE (FP) PO PRN ×3 (10:38→21:18)
[2017-05-18] MEDS: THIAMINE HCL 100 MG TABLET (FP) PO SCH (21:16)
[2017-05-18] MEDS: LIDOCAINE PATCH REMOVAL MC SCH (21:17)
[2017-05-18] MEDS: cloNIDine HCL 0.1 MG TABLET PO PRN (21:17)
[2017-05-18] MEDS: traZODone HCL 100 MG TABLET (FP) PO SCH (21:17)
[2017-05-18] MEDS: SUVOREXANT 10 MG TABLET PO PRN (21:20)
[2017-05-19] MEDS: GABAPENTIN 100 MG CAPSULE (FP) PO SCH ×3 (06:33→21:11)
[2017-05-19] MEDS: CYCLOBENZAPRINE HCL 10 MG TABLET (FP) PO SCH ×3 (06:33→21:12)
[2017-05-19] MEDS: PANTOPRAZOLE 40 MG TABLET (FP) PO SCH (06:33)
[2017-05-19] MEDS: hydrOXYzine PAMOATE 50 MG CAPSULE (FP) PO PRN ×4 (06:33→21:11)
[2017-05-19] MEDS ORDERED: SUVOREXANT 10 MG TABLET PO PRN (07:15)
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
[2017-05-19] MEDS: PRENATAL VITAMINS W/ FOLIC ACID TABLET (FP) PO SCH (09:54)
[2017-05-19] MEDS: BUPRENORPHINE/NALOXONE 8 MG/2 MG FILM PACKET SL SCH (09:54)
[2017-05-19] MEDS: SUCRALFATE 1 GM TABLET (FP) PO SCH ×2 (09:55→21:11)
[2017-05-19] MEDS: LIDOCAINE 5% TOPICAL PATCH TP SCH (09:55)
[2017-05-19] MEDS: cloNIDine HCL 0.1 MG TABLET PO PRN ×2 (09:56→21:11)
[2017-05-19] MEDS: MAG HYDROX/AL HYDROX/SIMETH 30 ML UNIT-DOSE CUP PO PRN ×2 (10:47→17:07)
[2017-05-19] MEDS: THIAMINE HCL 100 MG TABLET (FP) PO SCH (21:11)
[2017-05-19] MEDS: traZODone HCL 100 MG TABLET (FP) PO SCH (21:11)
[2017-05-19] MEDS: LIDOCAINE PATCH REMOVAL MC SCH (21:12)
[2017-05-19] MEDS: NICOTINE POLACRILEX 2 MG GUM BUC PRN (21:13)
[2017-05-20] MEDS: hydrOXYzine PAMOATE 50 MG CAPSULE (FP) PO PRN ×2 (06:01→09:33)
[2017-05-20] MEDS: GABAPENTIN 100 MG CAPSULE (FP) PO SCH (06:01)
[2017-05-20] MEDS: CYCLOBENZAPRINE HCL 10 MG TABLET (FP) PO SCH (06:01)
[2017-05-20] MEDS: PANTOPRAZOLE 40 MG TABLET (FP) PO SCH (06:01)
[2017-05-20 06:52] VITALS: BP 95/63; PULSE 112; TEMP 97.5
[2017-05-20] MEDS: MAG HYDROX/AL HYDROX/SIMETH 30 ML UNIT-DOSE CUP PO PRN ×2 (07:27)
[2017-05-20] MEDS: SUCRALFATE 1 GM TABLET (FP) PO SCH (09:33)
[2017-05-20] MEDS: LIDOCAINE 5% TOPICAL PATCH TP SCH (09:33)
[2017-05-20] MEDS: PRENATAL VITAMINS W/ FOLIC ACID TABLET (FP) PO SCH (09:33)
[2017-05-20] MEDS: BUPRENORPHINE/NALOXONE 8 MG/2 MG FILM PACKET SL SCH (09:34)
== END 2017-05-20 11:20 | disposition home or self-care (01) | DRG 772 ==
LOC: YASAS 09:16 → Y3W 11:32
PROVIDERS: ADMIT Psychiatry & Neurology Psychiatry; ATTEND Psychiatry & Neurology Psychiatry
PROC: HZ42ZZZ Group Counseling for Substance Abuse Treatment, Cognitive-Behavioral (ICD-10-PCS; principal; 2017-05-05)
DX: F11.20 Opioid dependence, uncomplicated (principal); F13.20 Sedative, hypnotic or anxiolytic dependence, uncomplicated; F12.20 Cannabis dependence, uncomplicated; F17.210 Nicotine dependence, cigarettes, uncomplicated; F19.24 Other psychoactive substance dependence with psychoactive substance-induced mood disorder; F19.282 Other psychoactive substance dependence with psychoactive substance-induced sleep disorder; J45.909 Unspecified asthma, uncomplicated; M54.5 Low back pain; G89.29 Other chronic pain; K29.70 Gastritis, unspecified, without bleeding
CPT/HCPCS: J0735